=== PATIENT | female | born 1955 | race Caucasian/White ===

== ENCOUNTER 2018-03-01 15:22 | Inpatient (IN) | payer OTHER ==
[~2018-03-01] VITALS: Ht 162.6 cm; Wt 69.5 kg
[2018-03-01 15:33] VITALS: Ht 162.6 cm; Wt 69.5 kg
[2018-03-01 16:38] LABS: PLATELET COUNT 476 x10^3mcL (130-400); RED CELL DISTRIBUTION WIDTH 15.7 % (11.5-14.5)
[2018-03-01 16:44] LABS: CALCIUM 9.5 mg/dL (8.5-10.1); CARBON DIOXIDE 31.4 mmol/L (21-32); CREATININE SERUM 1.2 mg/dL (0.6-1.0)
[2018-03-01 16:48] LABS: BILIRUBIN TOTAL 0.52 mg/dL (0.20-1.00)
[2018-03-01 16:49] LABS: ALBUMIN 2.5 g/dL (3.4-5.0); TOTAL PROTEIN, SERUM 8.4 g/dL (6.4-8.2)
[2018-03-01 16:51] LABS: BAND NEUTROPHIL 2 % (0-10); BASOPHIL 0 % (0-2); MONOCYTE 8 % (0-7); SEGMENTED NEUTROPHILS 79 % (37-75)
[2018-03-01 16:52] LABS: rbc morphology (normal/abnorm) ABNORMAL (NORMAL)
[2018-03-01] MEDS ORDERED: LOSARTAN POTASS1 TA6 PO (17:37)
[2018-03-01] MEDS ORDERED: XANAX0.25 MG PO (17:37)
[2018-03-01] MEDS ORDERED: FERROUS SULFAT325 M2 PO (17:39)
[2018-03-01] MEDS ORDERED: [UNRECOGNIZED DRUG - OTHER] PO (17:40)
[2018-03-01] MEDS ORDERED: HYDROCODONE PO (17:40)
[2018-03-01] MEDS ORDERED: RITUXAN10 MG/ML (17:40)
[2018-03-01 19:31] VITALS: BP 124/63
[2018-03-02 05:47] VITALS: BP 111/56
[2018-03-02 06:29] LABS: BILIRUBIN TOTAL 0.68 mg/dL (0.20-1.00); CALCIUM 9.4 mg/dL (8.5-10.1); MAGNESIUM 2.3 mg/dL (1.8-2.4); POTASSIUM SERUM 4.2 mmol/L (3.5-5.1); TOTAL PROTEIN, SERUM 7.3 g/dL (6.4-8.2)
[2018-03-02 06:30] LABS: ALBUMIN 2.1 g/dL (3.4-5.0)
[2018-03-02 06:54] LABS: PLATELET COUNT 401 x10^3mcL (130-400); RED CELL DISTRIBUTION WIDTH 15.9 % (11.5-14.5)
[2018-03-02 08:54] VITALS: BP 111/58
[2018-03-02 09:59] LABS: BAND NEUTROPHIL 4 % (0-10); BASOPHIL 0 % (0-2); MONOCYTE 5 % (0-7); PLATELET MORPHOLOGY LARGE PLATELET SEEN; SEGMENTED NEUTROPHILS 75 % (37-75); rbc morphology (normal/abnorm) ABNORMAL (NORMAL)
[2018-03-02 13:25] VITALS: BP 114/58
[2018-03-02 17:12] VITALS: BP 132/57
[2018-03-02 20:16] VITALS: BP 119/58
[2018-03-03 05:10] VITALS: BP 129/57
[2018-03-03 06:28] LABS: BASOPHIL % 0.3 % (0-2); PLATELET COUNT 356 x10^3mcL (130-400)
[2018-03-03 06:51] LABS: ALKALINE PHOSPHATASE 413 U/L (46-116); ALT/SGPT 72 U/L (14-59); AST/SGOT 33 U/L (15-37); BILIRUBIN TOTAL 0.6 mg/dL (0.20-1.00); CALCIUM 9.1 mg/dL (8.5-10.1); CARBON DIOXIDE 24.3 mmol/L (21-32); CHLORIDE SERUM 104 mmol/L (98-107); CREATININE SERUM 0.9 mg/dL (0.6-1.0); GFR1 > 60 mL/min; GLUCOSE SERUM 166 mg/dL (74-106); MAGNESIUM 2.1 mg/dL (1.8-2.4); POTASSIUM SERUM 3.9 mmol/L (3.5-5.1); SODIUM SERUM 140 mmol/L (136-145); TOTAL PROTEIN, SERUM 6.8 g/dL (6.4-8.2)
[2018-03-03 07:01] LABS: rbc morphology (normal/abnorm) ABNORMAL (NORMAL)
[2018-03-03 08:48] LABS: BAND NEUTROPHIL 5 % (0-10); BASOPHIL 0 % (0-2); MONOCYTE 8 % (0-7); PLATELET MORPHOLOGY LARGE PLATELET SEEN; SEGMENTED NEUTROPHILS 71 % (37-75)
[2018-03-03 08:59] VITALS: BP 125/61
[2018-03-03 13:37] VITALS: BP 120/62
[2018-03-03 18:16] VITALS: BP 153/72
[2018-03-04 04:30] VITALS: BP 122/71
[2018-03-04 06:09] LABS: PLATELET COUNT 397 x10^3mcL (130-400)
[2018-03-04 06:36] LABS: CALCIUM 9.2 mg/dL (8.5-10.1); CARBON DIOXIDE 22.7 mmol/L (21-32); CHLORIDE SERUM 106 mmol/L (98-107); CREATININE SERUM 0.9 mg/dL (0.6-1.0); GFR1 > 60 mL/min; GLUCOSE SERUM 122 mg/dL (74-106); POTASSIUM SERUM 3.9 mmol/L (3.5-5.1); SODIUM SERUM 142 mmol/L (136-145)
[2018-03-04 06:52] LABS: RED CELL DISTRIBUTION WIDTH 16.7 % (11.5-14.5)
[2018-03-04 09:13] LABS: BAND NEUTROPHIL 2 % (0-10); METAMYELOCTE 1 % (0-2); MONOCYTE 9 % (0-7); MYELOCYTE 1 % (0-2); SEGMENTED NEUTROPHILS 68 % (37-75)
[2018-03-04 09:14] LABS: PLATELET MORPHOLOGY PLATELETS NORMAL; rbc morphology (normal/abnorm) ABNORMAL (NORMAL)
[2018-03-04 12:37] VITALS: BP 112/64
== END 2018-03-04 14:45 | disposition home or self-care (01) | DRG 841 ==
LOC: ED 15:22 → DU 18:12
PROVIDERS: Emergency Medicine; Internal Medicine; Internal Medicine Pulmonary Disease
PROC: 30233N1 Transfusion of Nonautologous Red Blood Cells into Peripheral Vein, Percutaneous Approach (ICD-10-PCS; 2018-03-03)
PROC: 0DB68ZX Excision of Stomach, Via Natural or Artificial Opening Endoscopic, Diagnostic (ICD-10-PCS; principal; 2018-03-04 08:00)
PROC: 0DBM8ZZ Excision of Descending Colon, Via Natural or Artificial Opening Endoscopic (ICD-10-PCS; 2018-03-04 08:00)
DX: C85.90 Non-Hodgkin lymphoma, unspecified, unspecified site (principal); E44.1 Mild protein-calorie malnutrition; D63.0 Anemia in neoplastic disease; K29.60 Other gastritis without bleeding; B96.81 Helicobacter pylori [H. pylori] as the cause of diseases classified elsewhere; K63.5 Polyp of colon; K80.80 Other cholelithiasis without obstruction; I10 Essential (primary) hypertension; E78.5 Hyperlipidemia, unspecified; Z68.24 Body mass index [BMI] 24.0-24.9, adult; Z79.899 Other long term (current) drug therapy
CPT/HCPCS: 43239; 45378; G0378; J0696; J1200; J1610; J1644; J2250; J2310; J2543; J3010; J3370; J3490; J7030; J7040; P9016; Q0092; Q0162; Q9967